=== PATIENT | male | born 1950 ===

== ENCOUNTER → 2018-10-20 | Outpatient (REF) | payer MEDICARE | LOC: ZZSENDIN 12:00 | PROVIDERS: ATTEND Urology | DX: C61 Malignant neoplasm of prostate (principal); N41.1 Chronic prostatitis | CPT/HCPCS: 88305; 88344 ==

== ENCOUNTER → 2018-10-28 | Outpatient (CLI) | payer MEDICARE ==
[2018-10-28 09:49] LABS: PLATELET COUNT, AUTOMATED 216 K/uL (150-450)
--- NOTE | 2018-10-28 10:26 | RADIOLOGY IMAGING REPORT ---
FACILITY: [facility] - [place] PATIENT NAME: Hiren Chvaarria : 1950 MR: [id number] V: [id number] EXAM DATE: ORDERING PHYSICIAN: KERMIT MARTINEZ TECHNOLOGIST: Location: [facility] Patient: Hiren Chavarria : 1950 Visit/Account:[id number] Date of Sevice: 10/28/2018 Exam type: CHEST PA LAT History: State cancer Comparison: None. Findings: The lungs are free of acute effusions, infiltrates or edema. The cardiac silhouette is normal in siz e. There is moderate ectasia the thoracic aorta. The trachea is in midline. There are mild spondyl otic changes of the thoracic spine. IMPRESSION: 1. No acute cardiopulmonary process is seen Report Dictated By: Ruby Greene MD at 10/28/2018 10:21 AM Report E-Signed By: Ruby Greene MD at 10/28/2018 10:22 AM WSN:[email or web address]
== END ==
LOC: RAD 09:29
PROVIDERS: ATTEND Urology
DX: I77.810 Thoracic aortic ectasia (principal); C61 Malignant neoplasm of prostate
CPT/HCPCS: 36415; 71046; 82040; 82247; 82248; 82310; 82374; 82435; 82565; 82947; 84075; 84132; 84155; 84295; 84450; 84460; 84520; 85025

== ENCOUNTER 2019-01-18 08:56 | Day surgery (SDC) | payer MEDICARE ==
--- NOTE | 2019-01-15 12:14 | HISTORY AND PHYSICAL ---
DATE OF ADMISSION: January 18, 2019 CHIEF COMPLAINT Prostate cancer. HISTORY OF PRESENT ILLNESS The patient is a 68-year-old white male with a significant family history of prostate cancer who is followed in the urology clinic and noted to have an increasing PSA to 3.4 in August 2007. His exam was stable and the current plan was to repeat his PSA in 2 months. However, the patient did not return to the clinic until the following year and at that time his PSA was noted to be up to 5.7. This was repeated and was 5.2 with a 24% free. He underwent ultrasound biopsy of the prostate which revealed a 42 cc volume prostate. He was noted to have Debbi's 3+3=6 adenocarcinoma in 2 of the 12 cores and 50% of the core. Given his young age and strong family history, definitive treatment was discussed with the patient as a primary therapy. He was only borderline active surveillance candidate given his young age and a 50% core. After consultation with Radiation Oncology, the patient has elected to undergo primary brachytherapy treatment. He is now being brought to the operating room for planned transrectal ultrasound, step section and mapping in anticipation for brachytherapy planning. PAST MEDICAL HISTORY * Peyronie disease. * Mild generative joint disease. * Prostate cancer as per HPI. * Moderate BPH symptoms. PAST SURGICAL HISTORY * Tonsillectomy. ALLERGIES No known drug allergies. CURRENT MEDICATIONS None. FAMILY HISTORY Significant for prostate cancer in father and two uncles. REVIEW OF SYSTEMS The patient denies chest pain, shortness of breath, nausea, vomiting, fever, chills, change in bowel habits, gross hematuria, or chronic headaches. PHYSICAL EXAMINATION GENERAL: The patient is a well-developed, well-nourished white male in no acute distress. HEENT: Normocephalic, atraumatic. CHEST: Clear to auscultation bilaterally. CARDIOVASCULAR: Regular rate and rhythm. ABDOMEN: Soft, nontender, no masses are palpated. : Deferred to the OR. EXTREMITIES: Without clubbing, cyanosis, or edema. ASSESSMENT This is a 68-year-old white male with 3+3=6 adenocarcinoma of the prostate. PLAN We will perform step section mapping ultrasound of the prostate for brachytherapy planning. [facility]
[~2019-01-18] VITALS: Ht 182.9 cm; Wt 80.3 kg
[2019-01-18 09:07] LABS: PLATELET COUNT, AUTOMATED 204 K/uL (150-450)
[2019-01-18] MEDS ORDERED: MIDAZOLAM 2 MG/2 ML VIAL IVP PRN (09:20)
[2019-01-18] MEDS ORDERED: NORMOSOL R SOLN(*) 1000 ML BAG 1,000 ML IV PRN (09:20)
[2019-01-18] MEDS ORDERED: FAMOTIDINE 20 MG TAB PO ONE (09:20)
[2019-01-18] MEDS ORDERED: ceFAZolin(*) 1 GM VIAL 1 GM in NS(*) 0.9% 100 ML MINI-BAG 100 ML IVPB ONE (09:20)
[2019-01-18] MEDS ORDERED: LIDOCAINE/SOD BICARB 8.4% SYR ID ONE (09:20)
[2019-01-18 10:54] VITALS: BP 131/85
--- NOTE | 2019-01-18 12:16 | OPERATIVE REPORT 1 ---
EVENT DATE: January 18, 2019 SURGEON: Gómez Zepeda MD ANESTHESIOLOGIST: Guido Sosa MD ANESTHESIA: General. PREOPERATIVE DIAGNOSIS Prostate cancer. POSTOPERATIVE DIAGNOSIS Prostate cancer. PROCEDURE PERFORMED Transrectal planimetry ultrasound of prostate for brachytherapy planning. ESTIMATED BLOOD LOSS Minimal. IV FLUIDS Crystalloids. DRAINS None. COMPLICATIONS None. CONDITION Patient is taken to the recovery room awake and in stable condition. STATEMENT OF MEDICAL NECESSITY The patient is a 68-year old white male who was found to have a localized 3 + 3 = 6 adenocarcinoma in 2 of 12 biopsies and 50% core. After consultation with Radiation Oncology, he has elected to undergo primary brachytherapy. He is now being brought to the operating room for planned planimetry sizing of prostate for brachytherapy planning. DESCRIPTION OF PROCEDURE The patient was brought to the operating room. After general anesthetic was obtained, he was placed in the dorsal lithotomy position using the Yellofin stirrups. A small roll was placed under buttocks to tilt his pelvic slightly upward. Transducer gel was introduced into the patient's rectum atraumatically. The stabilizer was placed at the end of the table and the ultrasound probe placed in the cradle. The ultrasound probe was introduced in the patient's rectum atraumatically after a Garcia catheter was placed. The offset balloon was inflated and real-time ultrasound of the prostate was performed using the axial grid. At this point, step-section mapping planimetry was performed starting at the base and proceeding out to the apex. A 5 mm grid was performed. The first grid was a 1.7 preprogrammed grid where the mid of the prostate was slightly off center of the grid and was at approximately in between the little c and d. Step-section mapping was performed by drawing the outline at each step section and proceeding out to the apex. A total of 7 step sections were performed to give a total volume of 39.8 cc. At this point, the transition was turned perpendicularly and the length was measured at 37.7 mm. At this point, the study was performed a second time, this time using the standard brachytherapy 5 mm grid, where big D was in the mid of the prostate. At this time, a total of 8 step-sections were performed to give a total volume of 41.9 cc. The length was measured on the sagittal plane at 40.5 mL. At the conclusion of the procedure, the ultrasound offset balloon was deflated. The ultrasound was removed from the patient's rectum atraumatically. Garcia catheter was removed. He was taken down from dorsal lithotomy position, awakened in the operating room and taken to the recovery area in stable condition. PLAN We will have the patient return to the operating room in 2-1/2 to 3 weeks for planned brachytherapy. RITA
[2019-01-18 12:44] VITALS: BP 129/85
[2019-01-18 12:56] VITALS: BP 122/96
[2019-01-18 12:58] VITALS: BP 139/94
== END 2019-01-18 12:36 | disposition home or self-care (01) ==
LOC: OR 08:56
PROVIDERS: ATTEND Urology
DX: C61 Malignant neoplasm of prostate (principal); N48.6 Induration penis plastica
CPT/HCPCS: 36415; 55875; 81001; 84153; 85025; 87088; A9270; J0690; 82040; 82247; 82310; 82374; 82435; 82565; 82947; 84075; 84132; 84155; 84295; 84450; 84460; 84520

== ENCOUNTER 2019-01-26 11:50 | Outpatient (RCR) | payer MEDICARE ==
[2018-11-10 14:57] VITALS: BP 124/76
--- NOTE | 2018-11-11 04:58 | TOBIN CONSULT ---
EVENT DATE: November 10, 2018 CHIEF COMPLAINT/REASON FOR EVALUATION Patient is here for consultation. Newly diagnosed prostate carcinoma. Patient requests discussion of options for prostate brachytherapy versus external beam radiotherapy. STAGE T1c. HISTORY This is a 68-year-old gentleman with a strong family history of posterior rectus sheath carcinoma on his father's side (father and two uncles). The patient has been monitoring his PSA values since 1998. PSAs were stable in the 0.4-0.9 range through 2010. By 2014 through 2015, the PSA adolfo to the 2.6 range. Recently, the PSA elevated to 5.7 ng/mL on 09/07/18, but test was repeated on 09/16/18 with an elevation of PSA at 5.2 ng/mL. The patient was advised to have a prostate ultrasound biopsy, which was performed on 10/20/18. Two of 12 core biopsies were positive for Debbi 3+3=6 carcinoma. The core biopsies that were positive were present at the right apex at 50% of the biopsy length and left lateral apex at 50% of the biopsy length. The remainder of the other biopsies were negative. Prostate size was 38 mm x 48 mm x 43 mm for a volume of 42 cc. No complications from the biopsy. Patient has fairly normal voiding pattern. Denies any excessive frequency or any dysuria. No history of prostatitis. His AUA score today was 4. The patient typically does not get up at night. No bowel complaints. He denies any persistent bone pain. Patient had a recent CBC and metabolic panel which were normal. Recent chest x- ray on 10/28/18 was also normal. The patient states his father was diagnosed with prostate carcinoma in his mid- 70s. He is alive at this time in [place]. He chose the external beam radiotherapy option. His two grandfathers had prostate cancer diagnosed in their early 70s or early 80s. Both parents are still alive. His mother lives in the [facility], however. The patient states he had a colonoscopy a year ago. He apparently had three benign polyps and is scheduled for a repeat scope in three years. He does occasionally have a sudden need to urinate, but not excessively. MEDICATIONS None. ALLERGIES None. PAST MEDICAL HISTORY 1. Prostate cancer with the history listed above. 2. Mild DJD. SOCIAL HISTORY Patient is . 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 Social alcohol use. He did smoke remotely, one pack per day for 10 years, but quit in 1997. REVIEW OF SYSTEMS Negative with the exception of occasional joint pain or stiffness. 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 PHYSICAL EXAMINATION GENERAL: A pleasant 68-year-old male of medium build. VITAL SIGNS: Weight 173, height 72 inches, BP 124/76, pulse 56, respirations 16, O2 saturation 95% on room air. LYMPHATIC: No lymphadenopathy. LUNGS: Clear bilaterally. CARDIOVASCULAR: Heart sounds regular, with no audible murmur. ABDOMEN: Soft. No gross organomegaly. RECTAL: Prostate reveals minor asymmetry, with the right lobe being slightly larger than left side. There is some induration of the prostate, but no discrete nodularity posteriorly. No tenderness noted. EXTREMITIES: No edema. NEUROLOGIC: Exam is intact. IMPRESSION A 68-year-old gentleman with bilobed Debbi 6 adenocarcinoma of the prostate with the PSA between 5 and 6 ng/mL. At patient's request, I went through treatment options specifically directed to the prostate brachytherapy or external beam radiotherapy options. I also discussed briefly with him active surveillance and surgery. He states he has already ruled out the first two options, but would like to consider one of the radiation therapy options for his cancer. The patient would meet criteria for either external beam radiotherapy or prostate brachytherapy. I went through the details of prostate seed implant with the patient as far as the mapping is concerned and the OR date and placement of the seeds. I went through potential acute and late side effects. Patients may have increased urinary urgency, frequency, and/or dysuria. Symptoms can be pronounced over the first two to eight weeks following the procedure, but typically improve dramatically thereafter and stabilize. For external beam radiotherapy, the treatment course takes approximately nine weeks to complete. With the progressive field technique, the side effects are more gradual, with urinary urgency and frequency being the most common side effect. With either treatment technique, the rectal complications at modern centers should be 3% or less and are generally self-limited rectal bleeding, which responds commonly to hemorrhoidal-type therapies. In rare cases, telangiectases may firm, which would require argon laser, but that is certainly not the norm. If the patient selects prostate brachytherapy, advised him not to have any biopsies of the rectum for the first year following treatment. Patient is strongly leaning toward prostate brachytherapy at this time. He does have some commitments next month and asked if he could delay the seed implant to January due to his commitments with work. I told him I think that that would be perfectly acceptable. I would, however, like to repeat the PSA at the end of November and also have a baseline CT of the abdomen and pelvis prior to treatment to ensure accuracy of stage and prostate measurements. The study is also helpful to rule out any potential for pubic arch interference. Patient appears to be well counseled prior to the appointment today, and questions were answered to his satisfaction over a 90-minute consultation. I will revisit with him for a short visit in approximately a month. I will send an updated note to his other providers at that juncture regarding his decision at that point. Thank you for the referral. RITA
--- NOTE | 2018-12-10 14:24 | RADIOLOGY IMAGING REPORT ---
FACILITY: [facility] [place] PATIENT NAME: Mai Chavarria : 1950 MR: [id number] V: [id number] EXAM DATE: ORDERING PHYSICIAN: AMI JUDGE TECHNOLOGIST: Location: [facility] [place] Patient: Mai Chavarria : 1950 Visit/Account:[id number] Date of Sevice: 12/10/2018 CT ABDOMEN PELVIS W & W/O CONTRAST HISTORY: Prostate cancer staging TECHNIQUE: Axial images acquired through the abdomen/pelvis both with and without IV contrast.. Augustus nal and sagittal reformatting also performed.Dose Lowering Technique One of the following dose optimization techniques was utilized in the performance of this exam: Autom ated exposure control; adjustment of the mA and/or kV according to the patient's size; or use of an i terative reconstruction technique. Specific details can be referenced in the facility's radiology C T exam operational policy. CONTRAST: 75 mL Isovue-370 COMPARISON: None. FINDINGS: Visualized lung bases: There Is a small amount of patchy airspace consolidation in the posterior aspe ct of the right lower lobe which may represent scarring or atelectasis. A small amount scarring or a telectasis also seen in the medial left lower lobe Hepatobiliary: 2.1 cm cyst in the right lobe the liver Spleen: Spleen is enlarged measuring 14 cm in length Adrenals: Negative. Pancreas: Negative. Kidneys ureters and bladder: 1.5 cm parapelvic cyst lower pole the left kidney. No evidence of hydro nephrosis or hydroureter Genitalia: Prostate gland is moderately enlarged, heterogeneous and impinges upon the floor the blad riddhi GI: Negative. Vessels/spaces/nodes: There is a trace amount of free pelvic fluid. Incidental note of a retroaorti c left renal vein Bones/soft tissues: There is an umbilical hernia containing fat . Incidental small bilateral ingui nal hernias containing fat. There are spondylotic changes of the thoracolumbar spine. No aggressive appearing bone lesions are seen. Cystic lesion with a sclerotic rim in the medial left iliac bone h as a relatively benign appearance Additional findings: None pertinent. IMPRESSION: Small amount of patchy airspace consolidation the posterior right lower lobe which may represent scar ring or atelectasis. A small amount of scarring or atelectasis also seen in the medial left lower lo be Spleen is enlarged measuring 14 cm in length 1.5 cm parapelvic cyst on the left Trace amount of free pelvic fluid Umbilical hernia containing fat Small bilateral inguinal hernias containing fat Report Dictated By: Ruby Greene MD at 12/10/2018 2:07 PM Report E-Signed By: Ruby Greene MD at 12/10/2018 2:19 PM WSN:[email or web address]
[2018-12-17 14:14] VITALS: BP 127/72
--- NOTE | 2019-01-14 15:48 | ONCOLOGY FOLLOW UP NOTE ---
EVENT DATE: December 17, 2018 DIAGNOSIS/ONCOLOGY TREATMENT HISTORY Prostate adenocarcinoma diagnosed in September 2018, Debbi pattern 3 + 3 adenocarcinoma with two of 12 cores positive, one on the right apex, one on the left lateral apex. Pretreatment PSA 5.2. INTERVAL HISTORY The patient presents today for a followup. On presentation today, patient overall feels well. The patient denies significant urinary complaints. He has mild urgency. Patient has a strong stream without a sensation of incomplete emptying. He has no hematuria. He has excellent erectile function. He is wishing to proceed with prostate brachytherapy. MEDICATIONS None. ALLERGIES None. PAST MEDICAL HISTORY 1. Prostate cancer, see HPI. 2. Mild degenerative arthritis. SOCIAL HISTORY The patient is . He is a building construction estimator. No significant alcohol or drug use. Remote smoking history. FAMILY HISTORY Noncontributory. REVIEW OF SYSTEMS Negative and documented in the chart. PHYSICAL EXAMINATION CONSTITUTIONAL/GENERAL APPEARANCE: Patient is sitting comfortably in a chair. No acute distress. HEENT: Pupils equal, round, and reactive to light and accommodation. Extraocular movements are intact. There are no lesions in the oropharynx. NECK: Supple. Trachea midline. LYMPHATICS: No palpable supraclavicular lymphadenopathy bilaterally. LUNGS: Clear to auscultation and percussion bilaterally. CARDIOVASCULAR: Regular rate and rhythm. Normal S1 and S2. No murmurs, rubs, or gallops. ABDOMEN: Soft, nontender, with active bowel sounds. No hepatosplenomegaly. EXTREMITIES: No edema, clubbing, or cyanosis. NEUROLOGIC: Patient is alert and oriented times three. Gait is normal. PERFORMANCE STATUS: 100%. IMPRESSION Low-risk prostate adenocarcinoma, see above. The patient is interested in proceeding with prostate brachytherapy seed implant. PLAN The patient will be scheduled for mapping study as well as a followup in January when he is interested in pursuing brachytherapy. We will see him back at that time, and we will go through the informed consent process as well as his preoperative evaluation. RITA
[~2019-01-26 11:50] MED LIST: IOPAMIDOL 76% 150 ML INFUS BTL 150 ML ONE
[2019-01-26 12:03] VITALS: BP 121/81
[2019-02-04] MEDS ORDERED: PHEN200T32 PO (14:08)
[2019-02-04] MEDS ORDERED: CIPR-344 PO (14:09)
[2019-02-04] MEDS ORDERED: TAMS0.4C25 PO (14:10)
== END 2019-02-07 ==
LOC: RAON 11:50
PROVIDERS: ATTEND Radiology Radiation Oncology
DX: C61 Malignant neoplasm of prostate (principal); Z87.891 Personal history of nicotine dependence
CPT/HCPCS: 36415; 74178; 77332; 77790; 84153; G0463; Q9967; 77295; 77300; 77470; 99203; 99212

== ENCOUNTER 2019-02-04 00:58 | Day surgery (SDC) | payer MEDICARE ==
[~2019-02-04] VITALS: Ht 182.9 cm; Wt 78.5 kg
[~2019-02-04 00:58] MED LIST changes: +DEXAMETHASONE SOD PHOS 10MG/ML ONE; -IOPAMIDOL 76% 150 ML INFUS BTL 150 ML ONE; +LIDOCAINE MPF 1% 5 ML VIAL ONE; +ONDANSETRON 4 MG/2 ML VIAL ONE; +PROPOFOL EMUL(*) 10MG/ML 20 ML 20 ML ONE; +fentaNYL CITR 100 MCG/2 ML AMP ONE
[2019-02-04] MEDS ORDERED: fentaNYL CITR 100 MCG/2 ML AMP ONE ×2 (10:00→12:43)
[2019-02-04] MEDS ORDERED: PROPOFOL EMUL(*) 10MG/ML 20 ML 20 ML ONE (10:01)
[2019-02-04] MEDS ORDERED: LIDOCAINE 2% IV 100 MG/5ML SYR ONE (10:01)
[2019-02-04 10:17] VITALS: BP 141/84
[2019-02-04] MEDS ORDERED: LIDOCAINE/SOD BICARB 8.4% SYR ID ONE (10:30)
[2019-02-04] MEDS ORDERED: ceFAZolin(*) 1 GM VIAL 1 GM in NS(*) 0.9% 100 ML MINI-BAG 100 ML IVPB ONE (10:30)
[2019-02-04] MEDS ORDERED: MIDAZOLAM 2 MG/2 ML VIAL IVP PRN (10:30)
[2019-02-04] MEDS ORDERED: FAMOTIDINE 20 MG TAB PO ONE (10:30)
[2019-02-04] MEDS ORDERED: NORMOSOL R SOLN(*) 1000 ML BAG 1,000 ML IV PRN (10:30)
[2019-02-04] MEDS ORDERED: IOTHALAMATE MEGLU 172MG/ML BTL 250 ML IVPB ONE (11:05)
[2019-02-04] MEDS ORDERED: DEXAMETHASONE SOD 4 MG/ML VIAL ONE (11:57)
[2019-02-04] MEDS ORDERED: ONDANSETRON 4 MG/2 ML VIAL ONE (11:58)
[2019-02-04 14:00] VITALS: BP 117/77
[2019-02-04] MEDS ORDERED: PHEN200T32 PO ×2 (14:08)
[2019-02-04] MEDS ORDERED: CIPR-344 PO (14:09)
[2019-02-04] MEDS ORDERED: TAMS0.4C25 PO (14:10)
[2019-02-04 14:13] VITALS: BP 109/66
[2019-02-04 14:15] VITALS: BP 115/69
--- NOTE | 2019-02-04 14:30 | OPERATIVE REPORT 1 ---
EVENT DATE: February 04, 2019 SURGEON: Gómez Zepeda MD ANESTHESIOLOGIST: Constantin Sanchez MD ANESTHESIA: General. MILLED RICE BROKER: Emigdio Man MD PREOPERATIVE DIAGNOSIS Prostate cancer. POSTOPERATIVE DIAGNOSIS Prostate cancer. PROCEDURE PERFORMED 1. Transrectal ultrasound-guided transperineal prostate needle placement for brachytherapy treatment. 2. Flexible cystoscopy. ESTIMATED BLOOD LOSS 5 cc. PATHOLOGY None. DRAINS 16-Gabonese Coude Garcia catheter. COMPLICATIONS None. CONDITION Patient taken to recovery room awake and in stable condition. STATEMENT OF MEDICAL NECESSITY Patient is a 69-year old white male who was diagnosed with a low-volume 3+3=6 adenocarcinoma of the prostate in 2 of 12 cords at the apex. After consultation with Radiation Oncology, he has elected to undergo primary brachytherapy treatment under the direction of Dr. Man. DESCRIPTION OF PROCEDURE Patient was brought to the operating room and after general anesthetic was obtained he was placed in the dorsal lithotomy position using the Yellofin stirrups. His position was reproduced from brachytherapy planning. The patient was prepped and draped sterilely. A 16-Gabonese Coude Garcia catheter was placed with a dilute contrast in the balloon and bladder. A catheter plug was placed. A scrotal stay stitch was applied to provide exposure to the perineum. Transducer gel was placed in the patient's rectum. The ultrasound probe was introduced into patient's rectum atraumatically as well as place of the cradle of the stabilizer. The 5 mm grid was then used for ultrasound guidance for needle placement. The prostatic base and apex were marked with fluoroscopic imaging. The ultrasound probe was placed in the mid prostate. I then placed a total of 27 needles transperitoneally under ultrasound guidance into the prostate under the direction of Dr. Euceda in a pre-planned urethral sparing technique. After I placed the needles, he removed the needles and dropped a total of 87 seeds. Following this, the Garcia catheter was removed. Flexible cystoscopy was performed. He had a normal appearing urethra without evidence of active bleeding. There was a small blood clot in the bladder. Otherwise, no lesions, active bleeding or foreign bodies. The scope was removed. A 16-Gabonese Coude Garcia catheter was placed with 10 cc in the balloon. This was placed to gravity drainage. The scrotal stay stitch was removed. The patient was taken down from dorsal lithotomy position, transferred to the recovery area, where he was awake in stable condition. PLAN We will allow the patient to be discharged home under the orders of Dr. Euceda. We plan to see him in the Urology Clinic in three to four months. RITA
--- NOTE | 2019-02-04 14:33 | RADIOLOGY IMAGING REPORT ---
[place] [facility] [place] Hiren Chavarria : 1950 MR: [id number] V: [id number] EXAM DATE: ORDERING PHYSICIAN: KERMIT ZEPEDA TECHNOLOGIST: Location: [facility] Patient: Hiren Chavarria : 1950 Visit/Account:[id number] Date of Sevice: 02/04/2019 OR fluoroscopy films: Pelvis History: Prostate seed implants Comparison:None Findings: Fluoroscopy and imaging was provided for Dr. Zepeda. 4 minutes of fluoroscopy time was uti lized for a DAP of 8.89 Gycm2. Multiple images of the pelvis are archived to PACS which demonstrate p lacement of radioactive seeds in the prostate in progress. IMPRESSION: Fluoroscopy and imaging provided for Dr. Zepeda please see his report for details. Report Dictated By: Anne Jameson MD at 02/04/2019 2:26 PM Report E-Signed By: Anne Jameson MD at 02/04/2019 2:28 PM WSN:[email or web address]
--- NOTE | 2019-02-04 14:49 | OPERATIVE REPORT 1 ---
EVENT DATE: February 04, 2019 TIME: 1:10 p.m. SURGEON: Emigdio Man MD ANESTHESIOLOGIST: Constantin Sanchez MD ANESTHESIA: General endotracheal. SUPERINTENDENT GENERAL: Gómez Zepeda MD (Please see Dr. Zepeda's separately dictated operative report.) PREOPERATIVE DIAGNOSIS Low-risk prostate adenocarcinoma. POSTOPERATIVE DIAGNOSIS Low-risk prostate adenocarcinoma. PROCEDURE PERFORMED Palladium-103 prostate brachytherapy seed implants. COMPLICATIONS None. SPECIMENS None. FINDINGS Prostate is present. ESTIMATED BLOOD LOSS Trace. HISTORY The patient is a 69-year-old gentleman with a low-risk prostate adenocarcinoma. The patient has been counseled on treatment options including active surveillance and wishes to proceed with prostate brachytherapy seed implant. He has signed written informed consent to undergo this treatment. DESCRIPTION OF PROCEDURE The patient was brought to the operating room and placed in the dorsal lithotomy position. He was prepped and draped in the usual sterile fashion. Dr. Zepeda placed a Garcia catheter and sutured his scrotum anteriorly. A transrectal ultrasound probe was attached to the stepper base apparatus. The ultrasound probe was introduced into his anus, and the patient's rectum, bladder, prostate, and urethra were well visualized ultrasonographically. A total of 27 needles were then introduced into the prostate via the template. The positioning of the needle was placed according to a pre-implant dosimetry plan. The positioning of the needles was verified in both the axilla and sagittal planes on ultrasonogram. Once all 27 needles were placed, a total of 87 palladium-103 seeds were then deposited into the prostate according to the pre-implant dosimetry plan. The patient's Garcia catheter was then removed, and Dr. Zepeda performed a cystoscopy. He noted no evidence of foreign body or trauma within the bladder or prostatic urethra. The patient was extubated and transferred to the PACU in stable condition. PLAN The patient will follow up with Dr. Zepeda in two weeks and Dr. Man in one month. [facility]
== END 2019-02-04 14:00 | disposition home or self-care (01) ==
LOC: OR 00:58
PROVIDERS: ATTEND Radiology Radiation Oncology
DX: C61 Malignant neoplasm of prostate (principal)
CPT/HCPCS: 76000; 76873; A9270; J0690; J1100; J2001; J2405; J2704; J3010; Q9958